=== PATIENT | female | born 1955 | race Caucasian/White ===

== ENCOUNTER 2020-08-15 12:01 | Inpatient (IN) ==
[~2020-08-15 12:01] MED LIST: *HR* Dextrose 50 % in Water (Vial) 50 ML VIAL IVP ONE
[2020-08-15] MEDS ORDERED: *HR* Dextrose 50 % in Water (Vial) 50 ML VIAL IVP ONE (12:13)
[2020-08-15 12:25] LABS: Basophils % 0.2 %; Hematocrit 51.4 % (35.3-44.9); Hemoglobin 14.9 g/dL (11.5-15.4); Immature Granulocytes % 1.7 % (0-4); Lymphocytes # 1.5 K/mcL (0.6-4.6); Lymphocytes % 16.6 %; Mean Corpuscular Hemoglobin 30.4 pg (28.0-33.3); Mean Corpuscular Volume 104.9 fL (83.0-100.0); Mean Platelet Volume 11.1 fL (9.4-12.4); Monocytes # 0.7 K/mcL (0.0-1.3); Monocytes % 8.1 %; Neutrophils # 6.4 K/mcL (1.6-8.9); Platelet Count 146 K/mcL (140-400); Red Cell Distribution Width 12.8 % (11.5-14.5); Segmented Neutrophils % 73.4 %; White Blood Count 8.7 K/mcL (4.3-11.1)
[2020-08-15] MEDS ORDERED: Piperacillin/Tazobactam 3.375 GM in 0.9 % Sodium Chloride Mini Bag 100 ML IVPB ONE (12:25)
[2020-08-15 12:51] LABS: Calcium 9.8 mg/dL (8.6-10.3)
[2020-08-15 12:52] LABS: Troponin I 4.96 ng/mL (< 0.04)
[2020-08-15 12:55] LABS: Prothrombin Time 22.5 Seconds (9.4-12.1)
[2020-08-15] MEDS: Norepinephrine 4 MG/254 ML IV.SOLN IVC SCH ×2 (12:55→19:42)
[2020-08-15] MEDS ORDERED: 0.9 % Sodium Chloride 1,000 ML IV ONE (13:24)
[2020-08-15] MEDS ORDERED: D10% in Water 500 ML IVC SCH (13:45)
[2020-08-15] MEDS: 0.9 % Sodium Chloride 1,000 ML IVC SCH (13:47)
[2020-08-15] MEDS ORDERED: 0.9 % Sodium Chloride 2,000 ML ONE (15:25)
[2020-08-15] MEDS ORDERED: Naloxone 0.4 MG/ML INJ IVP PRN (15:44)
[2020-08-15] MEDS ORDERED: Ringers Solution, Lactated 1,000 ML IVC SCH (15:45)
[2020-08-15 15:49] LABS: Albumin 3.2 g/dL (3.5-5.7); Albumin/Globulin Ratio 1.4 (1.1-2.2); Bilirubin,Direct 0.6 mg/dL (0.0-0.2); Bilirubin,Indirect 0.8 mg/dL (0.0-1.0); Bilirubin,Total 1.4 mg/dL (0.3-1.0); Globulin 2.3 g/dL (2.4-3.5); Total Protein 5.5 g/dL (6.4-8.9)
[2020-08-15] MEDS ORDERED: *HR* Heparin 5,000 UNIT/ML VIAL IVP PRN (15:50)
[2020-08-15] MEDS ORDERED: Perflutren Lipid Microsphere 1.3 ML in 0.9 % Sodium Chloride 8.7 ML IVP PRN (15:52)
[2020-08-15] MEDS ORDERED: *HR* OxyCODONE/APAP 5/325 TABLET PO PRN (15:54)
[2020-08-15] MEDS ORDERED: *HR* Dextrose 50 % in Water (Vial) 50 ML VIAL IVP PRN (15:59)
[2020-08-15] MEDS ORDERED: Dextrose Gel 15 GM/37.5 ML TUBE PO PRN ×2 (15:59)
[2020-08-15] MEDS ORDERED: D5% in Water 1,000 ML IVC PRN (15:59)
[2020-08-15] MEDS ORDERED: Heparin 25,000UNIT/250ML 1/2NS 25,000 UNIT/250 ML IV.SOLN IVC SCH (16:00)
[2020-08-15] MEDS ORDERED: Piperacillin/Tazobactam 3.375 GM in 0.9 % Sodium Chloride Mini Bag 100 ML IVPB SCH (16:00)
[2020-08-15 16:27] LABS: Mean Corpuscular HGB Conc 30.5 g/dL (31.6-35.5); Mean Corpuscular Hemoglobin 30.8 pg (28.0-33.3); Mean Corpuscular Volume 100.8 fL (83.0-100.0); Mean Platelet Volume 11.3 fL (9.4-12.4); Platelet Count 157 K/mcL (140-400); Red Blood Count 3.77 M/mcL (3.82-4.97); Red Cell Distribution Width 12.8 % (11.5-14.5)
[2020-08-15 16:28] LABS: VBG HCO3 14 mEq/L (21-27); VBG PCO2 46 mmHg (41-51); VBG PH 7.09 pH Units (7.32-7.42); VBG PO2 75 mmHg (25-50)
[2020-08-15 16:31] LABS: Heparin anti-factor XA UFH 0.61 IU/mL (0.30-0.70)
[2020-08-15 16:32] LABS: INR 2.9
[2020-08-15] MEDS ORDERED: Tiotropium 10 INH DOSE IH ONE (16:34)
[2020-08-15 16:35] LABS: Hemoglobin 11.6 g/dL (11.5-15.4); White Blood Count 17.9 K/mcL (4.3-11.1)
[2020-08-15] MEDS ORDERED: Budesonide/Formoterol 160/4.5 1 PUFF INH IH ONE (16:35)
[2020-08-15 16:54] LABS: BUN/Creatinine Ratio 11 (6-26); Blood Urea Nitrogen 21 mg/dL (8-23); Calcium 7.4 mg/dL (8.6-10.3); Carbon Dioxide 12 mEq/L (23-29); Chloride 106 mEq/L (98-107); Chol/HDL Ratio 3.7 (0-4.9); Cholesterol 132 mg/dL (< 200); Glucose 136 mg/dL (70-105); HDL Cholesterol 36 mg/dL (40-59); LDL Cholesterol,Calculated 80 mg/dL (< 100); Osmolality,Calculated 297 (280-300); Potassium 4.7 mEq/L (3.5-5.1); Sodium 141 mEq/L (136-145); Triglycerides 78 mg/dL (< 150); eGFR For African Americans 31 (> 60); eGFR For Non-African Americans 26 (> 60)
[2020-08-15 17:09] LABS: Thyroid Stimulating Hormone 2.251 mcIU/mL (0.340-5.600)
[2020-08-15 17:19] LABS: Amorphous Sediment,Urine Few per hpf (None-Few); Bacteria,Urine Few per hpf (None-Few); Bilirubin,Urine Negative (Negative); Blood,Urine Moderate (Negative); Clarity,Urine Ex.Turbid (Clear); Color,Urine Yellow (Yellow); Glucose,Urine (UA) Normal (Normal); Ketones,Urine 20 mg/dL (Negative); Leukocyte Esterase,Urine Negative (Negative); Mucus,Urine Few per lpf (None-Few); Nitrite,Urine Negative (Negative); Protein,Urine >=300 mg/dL (Neg-Trace); RBC,Urine 30-50 per hpf (0-3); Specific Gravity,Urine 1.019 (1.010-1.025); Urobilinogen,Urine Normal (Normal)
[2020-08-15 17:42] LABS: Protein/Creatinine Ratio,Urine 4.78 mg/mg (0.00-0.20); Sodium, Urine 95.3 mEq/L
[2020-08-15] MEDS: D5% in 0.45% NACL 1,000 ML IVC SCH (18:01)
[2020-08-15] MEDS: Calcium Gluconate 1gm/50mL 1 GM/50 ML BAG IVPB SCH ×2 (18:02→18:49)
[2020-08-15] MEDS: Ondansetron 4 MG/2 ML VIAL IVP PRN (18:12)
[2020-08-15] MEDS: Budesonide/Formoterol 160/4.5 1 PUFF INH IH SCH (19:47)
[2020-08-15 20:07] LABS: VBG HCO3 18 mEq/L (21-27); VBG PCO2 41 mmHg (41-51); VBG PH 7.25 pH Units (7.32-7.42); VBG PO2 60 mmHg (25-50)
[2020-08-15 20:29] LABS: Acetaminophen < 10 mcg/mL (10-20)
[2020-08-15 20:33] LABS: Troponin I 6.79 ng/mL (< 0.04)
[2020-08-15] MEDS ORDERED: Famotidine 20 MG TABLET PO SCH (21:00)
[2020-08-15 21:10] LABS: INR 3.3; Prothrombin Time 36.8 Seconds (9.4-12.1)
[2020-08-15 21:13] LABS: Activated Partial Thrombo Time 32.3 Seconds (26.0-36.0)
[2020-08-15] MEDS: Temazepam 15 MG CAPSULE PO SCH (21:48)
[2020-08-15] MEDS: Insulin LISPRO 300 UNITS/3 ML VIAL SUBQ SCH ×2 (21:48→23:36)
[2020-08-15] MEDS: Famotidine 20 MG/2 ML VIAL IVP SCH (22:05)
[2020-08-15 23:34] LABS: Calcium 7.9 mg/dL (8.6-10.3); Potassium 4.1 mEq/L (3.5-5.1)
[2020-08-16] MEDS: Ondansetron 4 MG/2 ML VIAL IVP PRN ×2 (00:45→16:18)
[2020-08-16] MEDS: D5% in 0.45% NACL 1,000 ML IVC SCH ×3 (02:16→19:18)
[2020-08-16 02:46] LABS: Hepatitis B Surface Antigen Nonreactive (Nonreactive)
[2020-08-16 03:14] LABS: Hepatitis C Virus Antibody Nonreactive (Nonreactive)
[2020-08-16 03:15] LABS: Hepatitis B Core IgM Nonreactive (Nonreactive)
[2020-08-16 04:07] LABS: Hemoglobin 10.5 g/dL (11.5-15.4)
[2020-08-16 04:09] LABS: Hematocrit 31.9 % (35.3-44.9); Immature Platelets 6.8 % (1.1-6.1); Mean Corpuscular HGB Conc 32.9 g/dL (31.6-35.5); Mean Corpuscular Hemoglobin 31.1 pg (28.0-33.3); Mean Corpuscular Volume 94.4 fL (83.0-100.0); Mean Platelet Volume 11.1 fL (9.4-12.4); Red Blood Count 3.38 M/mcL (3.82-4.97); Red Cell Distribution Width 12.7 % (11.5-14.5); White Blood Count 15.1 K/mcL (4.3-11.1)
[2020-08-16 04:18] LABS: INR 2.6; Prothrombin Time 29.6 Seconds (9.4-12.1)
[2020-08-16 04:27] LABS: VBG Ionized Calcium 1.08 mmol/L (1.15-1.35)
[2020-08-16 04:49] LABS: Alanine Aminotransferase 3526 Units/L (7-52); Albumin/Globulin Ratio 1.6 (1.1-2.2); Alkaline Phosphatase 65 Units/L (34-104); Aspartate Amino Transferase > 3000 Units/L (13-39); BUN/Creatinine Ratio 14 (6-26); Bilirubin,Direct 0.2 mg/dL (0.0-0.2); Bilirubin,Indirect 0.4 mg/dL (0.0-1.0); Bilirubin,Total 0.6 mg/dL (0.3-1.0); Blood Urea Nitrogen 30 mg/dL (8-23); Calcium 7.7 mg/dL (8.6-10.3); Carbon Dioxide 20 mEq/L (23-29); Chloride 103 mEq/L (98-107); Globulin 1.9 g/dL (2.4-3.5); Glucose 147 mg/dL (70-105); Magnesium 2.3 mg/dL (1.6-2.6); Osmolality,Calculated 283 (280-300); Potassium 3.9 mEq/L (3.5-5.1); Sodium 132 mEq/L (136-145); Total Protein 4.9 g/dL (6.4-8.9); eGFR For African Americans 28 (> 60); eGFR For Non-African Americans 23 (> 60)
[2020-08-16] MEDS: Calcium Gluconate 1gm/50mL 1 GM/50 ML BAG IVPB SCH ×2 (05:21→06:14)
[2020-08-16] MEDS: Famotidine 20 MG/2 ML VIAL IVP SCH (05:21)
[2020-08-16] MEDS: Insulin LISPRO 300 UNITS/3 ML VIAL SUBQ SCH ×2 (05:34→11:00)
[2020-08-16] MEDS: Tiotropium 10 INH DOSE IH SCH (08:10)
[2020-08-16] MEDS: Budesonide/Formoterol 160/4.5 1 PUFF INH IH SCH ×2 (08:11→20:00)
[2020-08-16] MEDS ORDERED: (Ezetimibe [Zetia] 10 MG) PO SCH (09:00)
[2020-08-16] MEDS ORDERED: D5% in 0.45% NACL 1,000 ML IVC PRN (10:12)
[2020-08-16] MEDS: Aspirin Enteric Coated 81 MG Tablet PO SCH (10:59)
[2020-08-16] MEDS: Lactulose Oral Soln 20 GM/30 ML UDC PO SCH (18:14)
[2020-08-16] MEDS: Temazepam 15 MG CAPSULE PO SCH (20:25)
[2020-08-16] MEDS: Famotidine 20 MG TABLET PO SCH (20:59)
[2020-08-16] MEDS ORDERED: Lactulose Oral Soln 20 GM/30 ML UDC PO SCH (21:00)
[2020-08-17] MEDS ORDERED: Lactulose Oral Soln 20 GM/30 ML UDC PO ONE
[2020-08-17] MEDS: D5% in 0.45% NACL 1,000 ML IVC SCH (03:52)
[2020-08-17 04:02] LABS: Hemoglobin 9.6 g/dL (11.5-15.4); Mean Corpuscular Hemoglobin 31.6 pg (28.0-33.3); Mean Platelet Volume 11.4 fL (9.4-12.4); Red Blood Count 3.04 M/mcL (3.82-4.97); Red Cell Distribution Width 12.4 % (11.5-14.5)
[2020-08-17 04:04] LABS: Hematocrit 28.5 % (35.3-44.9); Immature Platelets 5.7 % (1.1-6.1); Mean Corpuscular HGB Conc 33.7 g/dL (31.6-35.5); Mean Corpuscular Volume 93.8 fL (83.0-100.0)
[2020-08-17 04:14] LABS: VBG HCO3 18 mEq/L (21-27); VBG Ionized Calcium 1.06 mmol/L (1.15-1.35); VBG PCO2 37 mmHg (41-51); VBG PO2 64 mmHg (25-50)
[2020-08-17 04:28] LABS: Prothrombin Time 22.7 Seconds (9.4-12.1)
[2020-08-17 04:31] LABS: Activated Partial Thrombo Time 26.1 Seconds (26.0-36.0)
[2020-08-17] MEDS ORDERED: Calcium Gluconate 1gm/50mL 1 GM/50 ML BAG IVPB ONE ×2 (04:35→05:15)
[2020-08-17 04:38] LABS: Alanine Aminotransferase 2766 Units/L (7-52); Albumin 2.8 g/dL (3.5-5.7); Albumin/Globulin Ratio 1.6 (1.1-2.2); Alkaline Phosphatase 64 Units/L (34-104); Aspartate Amino Transferase > 3000 Units/L (13-39); BUN/Creatinine Ratio 13 (6-26); Bilirubin,Direct 0.2 mg/dL (0.0-0.2); Bilirubin,Indirect 0.4 mg/dL (0.0-1.0); Bilirubin,Total 0.6 mg/dL (0.3-1.0); Blood Urea Nitrogen 45 mg/dL (8-23); Calcium 7.4 mg/dL (8.6-10.3); Carbon Dioxide 17 mEq/L (23-29); Chloride 99 mEq/L (98-107); Globulin 1.8 g/dL (2.4-3.5); Glucose 114 mg/dL (70-105); Osmolality,Calculated 274 (280-300); Potassium 3.6 mEq/L (3.5-5.1); Sodium 126 mEq/L (136-145); Total Protein 4.6 g/dL (6.4-8.9); eGFR For African Americans 16 (> 60); eGFR For Non-African Americans 14 (> 60)
[2020-08-17] MEDS: Calcium Gluconate 1gm/50mL 1 GM/50 ML BAG IVPB SCH ×2 (05:48→06:52)
[2020-08-17] MEDS: Tiotropium 10 INH DOSE IH SCH (07:35)
[2020-08-17] MEDS: Budesonide/Formoterol 160/4.5 1 PUFF INH IH SCH ×2 (07:35→20:05)
[2020-08-17] MEDS: Lactulose Oral Soln 20 GM/30 ML UDC PO SCH ×2 (07:58→19:47)
[2020-08-17] MEDS: Famotidine 20 MG TABLET PO SCH ×2 (07:58→19:46)
[2020-08-17] MEDS: Aspirin Enteric Coated 81 MG Tablet PO SCH (07:59)
[2020-08-17] MEDS: Sodium Bicarbonate 150 MEQ in D5% in 0.45% NACL 1,000 ML IVC SCH (11:04)
[2020-08-17 17:32] LABS: Hepatitis A Antibody IgM Nonreactive (Nonreactive)
[2020-08-17] MEDS: Temazepam 15 MG CAPSULE PO SCH (19:55)
[2020-08-18 04:34] LABS: VBG Ionized Calcium 1.01 mmol/L (1.15-1.35)
[2020-08-18 04:42] LABS: Hematocrit 26.2 % (35.3-44.9); Hemoglobin 9.1 g/dL (11.5-15.4); Immature Platelets 5.4 % (1.1-6.1); Mean Corpuscular HGB Conc 34.7 g/dL (31.6-35.5); Mean Corpuscular Hemoglobin 31.4 pg (28.0-33.3); Mean Corpuscular Volume 90.3 fL (83.0-100.0); Mean Platelet Volume 11.1 fL (9.4-12.4); Red Blood Count 2.9 M/mcL (3.82-4.97); Red Cell Distribution Width 12.1 % (11.5-14.5); White Blood Count 8.2 K/mcL (4.3-11.1)
[2020-08-18 05:09] LABS: Rheumatoid Factor 11 IU/mL (Less than 14)
[2020-08-18 05:16] LABS: Complement C3 43 mg/dL (87-200)
[2020-08-18 05:27] LABS: % Iron Saturation 15 % (15-50); Alanine Aminotransferase 1566 Units/L (7-52); Albumin 2.4 g/dL (3.5-5.7); Albumin/Globulin Ratio 1.3 (1.1-2.2); Alkaline Phosphatase 66 Units/L (34-104); Aspartate Amino Transferase 753 Units/L (13-39); BUN/Creatinine Ratio 12 (6-26); Bilirubin,Total 0.8 mg/dL (0.3-1.0); Blood Urea Nitrogen 52 mg/dL (8-23); Calcium 7.3 mg/dL (8.6-10.3); Carbon Dioxide 23 mEq/L (23-29); Chloride 95 mEq/L (98-107); Globulin 1.8 g/dL (2.4-3.5); Glucose 96 mg/dL (70-105); Iron 30 mcg/dL (50-170); Osmolality,Calculated 276 (280-300); Potassium 3.6 mEq/L (3.5-5.1); Sodium 126 mEq/L (136-145); Total Protein 4.2 g/dL (6.4-8.9); Transferrin 147 mg/dL (203-362); eGFR For African Americans 13 (> 60); eGFR For Non-African Americans 10 (> 60)
[2020-08-18 05:33] LABS: Ferritin > 1500 ng/mL (10-120)
[2020-08-18] MEDS: Calcium Gluconate 1gm/50mL 1 GM/50 ML BAG IVPB SCH ×2 (05:34→06:27)
[2020-08-18 05:45] LABS: Folate 6.8 ng/mL (3.0-16.0)
[2020-08-18 05:47] LABS: Vitamin B12 > 1500 pg/mL (250-1100)
[2020-08-18] MEDS: Budesonide/Formoterol 160/4.5 1 PUFF INH IH SCH ×2 (08:10→20:13)
[2020-08-18] MEDS: Tiotropium 10 INH DOSE IH SCH (08:10)
[2020-08-18 09:20] LABS: INR 1.4; Prothrombin Time 16.1 Seconds (9.4-12.1)
[2020-08-18 09:22] LABS: Protein/Creatinine Ratio,Urine 2.55 mg/mg (0.00-0.20); Sodium, Urine 19.4 mEq/L
[2020-08-18] MEDS: Sodium Bicarbonate 150 MEQ in D5% in 0.45% NACL 1,000 ML IVC SCH ×3 (10:00→11:17)
[2020-08-18] MEDS: Lactulose Oral Soln 20 GM/30 ML UDC PO SCH ×2 (10:13→20:16)
[2020-08-18] MEDS: Aspirin Enteric Coated 81 MG Tablet PO SCH (10:13)
[2020-08-18] MEDS: Famotidine 20 MG TABLET PO SCH ×2 (10:15→20:17)
[2020-08-18] MEDS ORDERED: Perflutren Lipid Microsphere 1.3 ML in 0.9 % Sodium Chloride 8.7 ML IVP PRN (10:20)
[2020-08-18] MEDS ORDERED: D5% in Water 1,000 ML IVC PRN (10:20)
[2020-08-18] MEDS ORDERED: D5% in 0.45% NACL 1,000 ML IVC PRN (10:20)
[2020-08-18] MEDS ORDERED: Ondansetron 4 MG/2 ML VIAL IVP PRN (10:20)
[2020-08-18] MEDS ORDERED: *HR* Dextrose 50 % in Water (Vial) 50 ML VIAL IVP PRN (10:20)
[2020-08-18] MEDS ORDERED: Dextrose Gel 15 GM/37.5 ML TUBE PO PRN ×2 (10:20)
[2020-08-18] MEDS ORDERED: Naloxone 0.4 MG/ML INJ IVP PRN (10:20)
[2020-08-18] MEDS ORDERED: *HR* Heparin 5,000 UNIT/ML VIAL IVP PRN ×2 (13:44)
[2020-08-18] MEDS: Heparin 25,000UNIT/250ML 1/2NS 25,000 UNIT/250 ML IV.SOLN IVC SCH (15:07)
[2020-08-18 15:39] LABS: Heparin anti-factor XA UFH 0.1 IU/mL (0.30-0.70)
[2020-08-18 15:40] LABS: INR 1.2; Prothrombin Time 14.2 Seconds (9.4-12.1)
[2020-08-18 18:19] LABS: Activated Partial Thrombo Time 23.9 Seconds (26.0-36.0)
[2020-08-18 18:36] LABS: Hematocrit 26.9 % (35.3-44.9); Hemoglobin 9.4 g/dL (11.5-15.4); Immature Platelets 5.2 % (1.1-6.1); Mean Corpuscular HGB Conc 34.9 g/dL (31.6-35.5); Mean Corpuscular Hemoglobin 31.5 pg (28.0-33.3); Mean Corpuscular Volume 90.3 fL (83.0-100.0); Mean Platelet Volume 11.2 fL (9.4-12.4); Red Blood Count 2.98 M/mcL (3.82-4.97); Red Cell Distribution Width 12.3 % (11.5-14.5)
[2020-08-18] MEDS: Temazepam 15 MG CAPSULE PO SCH (20:17)
[2020-08-19 03:29] LABS: Red Cell Distribution Width 12.3 % (11.5-14.5)
[2020-08-19 03:32] LABS: Hematocrit 25.9 % (35.3-44.9); Immature Platelets 4.3 % (1.1-6.1); Mean Corpuscular HGB Conc 34.7 g/dL (31.6-35.5); Mean Corpuscular Hemoglobin 31.5 pg (28.0-33.3); Mean Corpuscular Volume 90.6 fL (83.0-100.0); Mean Platelet Volume 11.4 fL (9.4-12.4); Red Blood Count 2.86 M/mcL (3.82-4.97); White Blood Count 7.7 K/mcL (4.3-11.1)
[2020-08-19 04:13] LABS: Albumin 2.3 g/dL (3.5-5.7); Albumin/Globulin Ratio 1.3 (1.1-2.2); Bilirubin,Total 1.1 mg/dL (0.3-1.0); Calcium 7.2 mg/dL (8.6-10.3); Globulin 1.8 g/dL (2.4-3.5); Total Protein 4.1 g/dL (6.4-8.9)
[2020-08-19] MEDS: Budesonide/Formoterol 160/4.5 1 PUFF INH IH SCH ×2 (07:43→19:58)
[2020-08-19] MEDS: Aspirin Enteric Coated 81 MG Tablet PO SCH (08:25)
[2020-08-19] MEDS: Famotidine 20 MG TABLET PO SCH (08:25)
[2020-08-19] MEDS: Lactulose Oral Soln 20 GM/30 ML UDC PO SCH ×2 (08:25→19:29)
[2020-08-19] MEDS: Sodium Bicarbonate 150 MEQ in D5% in 0.45% NACL 1,000 ML IVC SCH ×3 (09:34→23:23)
[2020-08-19] MEDS: Tiotropium 10 INH DOSE IH SCH (11:14)
[2020-08-19] MEDS ORDERED: 0.9 % Sodium Chloride 1,000 ML IVC SCH (11:15)
[2020-08-19] MEDS: Metoprolol XL (24 HR) Succ 25 MG TAB.ER.24H PO SCH (12:51)
[2020-08-19] MEDS: Heparin 25,000UNIT/250ML 1/2NS 25,000 UNIT/250 ML IV.SOLN IVC SCH (12:52)
[2020-08-19] MEDS: Temazepam 15 MG CAPSULE PO SCH (19:29)
[2020-08-20 03:28] LABS: Hematocrit 27.9 % (35.3-44.9); Hemoglobin 9.3 g/dL (11.5-15.4); Mean Corpuscular HGB Conc 33.3 g/dL (31.6-35.5); Mean Corpuscular Hemoglobin 30.4 pg (28.0-33.3); Mean Corpuscular Volume 91.2 fL (83.0-100.0); Mean Platelet Volume 11.1 fL (9.4-12.4); Platelet Count 114 K/mcL (140-400); Red Blood Count 3.06 M/mcL (3.82-4.97); Red Cell Distribution Width 12.8 % (11.5-14.5); White Blood Count 8.4 K/mcL (4.3-11.1)
[2020-08-20 03:48] LABS: Magnesium 1.8 mg/dL (1.6-2.6); Potassium 3.3 mEq/L (3.5-5.1)
[2020-08-20] MEDS: Tiotropium 10 INH DOSE IH SCH (07:34)
[2020-08-20] MEDS: Budesonide/Formoterol 160/4.5 1 PUFF INH IH SCH ×2 (07:34→20:03)
[2020-08-20] MEDS: Aspirin Enteric Coated 81 MG Tablet PO SCH (08:56)
[2020-08-20] MEDS: Metoprolol XL (24 HR) Succ 25 MG TAB.ER.24H PO SCH (08:56)
[2020-08-20] MEDS: Lactulose Oral Soln 20 GM/30 ML UDC PO SCH ×2 (08:57→20:14)
[2020-08-20] MEDS: Sodium Bicarbonate 150 MEQ in D5% in 0.45% NACL 1,000 ML IVC SCH ×2 (11:15→22:12)
[2020-08-20] MEDS: Heparin 25,000UNIT/250ML 1/2NS 25,000 UNIT/250 ML IV.SOLN IVC SCH (16:24)
[2020-08-20 17:38] LABS: Adenovirus Not Detected (Not Detect); Bordetella Pertussis Not Detected (Not Detect); Chlamydophila pneumoniae Not Detected (Not Detect); Coronavirus 229E Not Detected (Not Detect); Coronavirus HKU1 Not Detected (Not Detect); Coronavirus NL63 Not Detected (Not Detect); Coronavirus OC43 Not Detected (Not Detect); Human Metapneumovirus Not Detected (Not Detect); Human Rhinovirus/Enterovirus Not Detected (Not Detect); Influenza A Subtype 2009 H1 Not Detected (Not Detect); Influenza B Not Detected (Not Detect); Mycoplasma pneumoniae Not Detected (Not Detect); Parainfluenza Virus 1 Not Detected (Not Detect); Parainfluenza Virus 2 Not Detected (Not Detect); Parainfluenza Virus 3 Not Detected (Not Detect); Parainfluenza Virus 4 Not Detected (Not Detect); Respiratory Syncytial Virus Not Detected (Not Detect); SARS-CoV-2 Not Detected (Not Detect)
[2020-08-20] MEDS: Famotidine 20 MG TABLET PO SCH (20:14)
[2020-08-20] MEDS: Temazepam 15 MG CAPSULE PO SCH (20:15)
[2020-08-20 21:42] LABS: Basophils % 0.1 %; Eosinophils # 0.1 K/mcL (0.0-0.6); Eosinophils % 1.3 %; Hematocrit 27.4 % (35.3-44.9); Hemoglobin 9.3 g/dL (11.5-15.4); Immature Granulocytes % 0.9 % (0-4); Lymphocytes # 1.3 K/mcL (0.6-4.6); Lymphocytes % 16.4 %; Mean Corpuscular HGB Conc 33.9 g/dL (31.6-35.5); Mean Corpuscular Hemoglobin 31.1 pg (28.0-33.3); Mean Corpuscular Volume 91.6 fL (83.0-100.0); Mean Platelet Volume 11.3 fL (9.4-12.4); Monocytes # 1.4 K/mcL (0.0-1.3); Monocytes % 18.5 %; Neutrophils # 4.8 K/mcL (1.6-8.9); Platelet Count 116 K/mcL (140-400); Red Blood Count 2.99 M/mcL (3.82-4.97); Red Cell Distribution Width 13.1 % (11.5-14.5); Segmented Neutrophils % 62.8 %; White Blood Count 7.6 K/mcL (4.3-11.1)
[2020-08-20 21:57] LABS: ABG Base Excess 4 mEq/L (-2 to 3); ABG HCO3 30 mEq/L (21-27); ABG Oxygen Saturation 94 % (95-98); ABG PCO2 46 mmHg (35-45); ABG PH 7.42 pH Units (7.32-7.45); ABG PO2 70 mmHg (85-104); ABG TCO2 31 mEq/L (20-26)
[2020-08-20 22:04] LABS: Platelet Estimate Slight Decrease (Normal)
[2020-08-20 22:05] LABS: Calcium 7.1 mg/dL (8.6-10.3); Potassium 3.1 mEq/L (3.5-5.1)
[2020-08-21] MEDS ORDERED: Calcium Gluconate 1gm/50mL 1 GM/50 ML BAG IVPB ONE (00:08)
[2020-08-21 06:16] LABS: Hemoglobin 9.1 g/dL (11.5-15.4); Mean Corpuscular HGB Conc 33.7 g/dL (31.6-35.5); Mean Corpuscular Hemoglobin 30.8 pg (28.0-33.3); Mean Corpuscular Volume 91.5 fL (83.0-100.0); Mean Platelet Volume 11.2 fL (9.4-12.4); Platelet Count 110 K/mcL (140-400); Red Blood Count 2.95 M/mcL (3.82-4.97); Red Cell Distribution Width 13.3 % (11.5-14.5); White Blood Count 8.5 K/mcL (4.3-11.1)
[2020-08-21 06:37] LABS: Albumin 2.1 g/dL (3.5-5.7); Albumin/Globulin Ratio 1.2 (1.1-2.2); Bilirubin,Direct 0.2 mg/dL (0.0-0.2); Bilirubin,Indirect 0.5 mg/dL (0.0-1.0); Bilirubin,Total 0.7 mg/dL (0.3-1.0); Globulin 1.8 g/dL (2.4-3.5); Total Protein 3.9 g/dL (6.4-8.9)
[2020-08-21 06:38] LABS: Calcium 7.2 mg/dL (8.6-10.3); Magnesium 1.8 mg/dL (1.6-2.6); Potassium 3.4 mEq/L (3.5-5.1)
[2020-08-21 06:51] LABS: ANA IgG by ELISA NONE DETECTED (None Detected)
[2020-08-21] MEDS: Tiotropium 10 INH DOSE IH SCH (08:03)
[2020-08-21] MEDS: Budesonide/Formoterol 160/4.5 1 PUFF INH IH SCH ×2 (08:03→19:57)
[2020-08-21] MEDS: Aspirin Enteric Coated 81 MG Tablet PO SCH (08:34)
[2020-08-21] MEDS: Lactulose Oral Soln 20 GM/30 ML UDC PO SCH ×2 (08:34→21:59)
[2020-08-21 09:24] LABS: Serine Protease-3 Antibody 0 AU/mL (0-19)
[2020-08-21] MEDS ORDERED: 0.9 % Sodium Chloride 250 ML IVC PRN (09:24)
[2020-08-21] MEDS ORDERED: *HR* Heparin 10,000 UNIT/10 ML VIAL IV PRN (09:24)
[2020-08-21 09:25] LABS: GBM IgG Multiplex Bead Assay 0 AU/mL (0-19); Glomerular Basement Memb IgG NEGATIVE (Negative)
[2020-08-21] MEDS ORDERED: 0.9 % Sodium Chloride 1,000 ML PRIME SCH (09:30)
[2020-08-21] MEDS: Metoprolol XL (24 HR) Succ 25 MG TAB.ER.24H PO SCH (10:03)
[2020-08-21] MEDS: Sodium Bicarbonate 150 MEQ in D5% in 0.45% NACL 1,000 ML IVC SCH (10:03)
[2020-08-21 11:53] LABS: Hepatitis B Surface Antibody < 3.10 mIU/mL
[2020-08-21 12:04] LABS: Hepatitis B Surface Antigen Nonreactive (Nonreactive)
[2020-08-21] MEDS: Heparin 25,000UNIT/250ML 1/2NS 25,000 UNIT/250 ML IV.SOLN IVC SCH (13:50)
[2020-08-21] MEDS ORDERED: *HR* Heparin 5,000 UNIT/ML VIAL ONE (14:01)
[2020-08-21] MEDS: Famotidine 20 MG TABLET PO SCH (21:58)
[2020-08-21] MEDS: *HR* OxyCODONE/APAP 5/325 TABLET PO PRN (21:59)
[2020-08-22 03:38] LABS: APTT (LE Anticoag) 37 sec (32-48); Diluted Russell Viper Venom 42 sec (33-44); PT (LE-Anticoag) 18.5 sec (12.0-15.5)
[2020-08-22 05:22] LABS: Basophils % 0.3 %; Eosinophils # 0.1 K/mcL (0.0-0.6); Eosinophils % 1.3 %; Hematocrit 28.2 % (35.3-44.9); Hemoglobin 9.2 g/dL (11.5-15.4); Immature Granulocytes % 0.8 % (0-4); Lymphocytes # 1.5 K/mcL (0.6-4.6); Mean Corpuscular HGB Conc 32.6 g/dL (31.6-35.5); Mean Corpuscular Hemoglobin 30.7 pg (28.0-33.3); Monocytes # 1.3 K/mcL (0.0-1.3); Monocytes % 17.4 %; Neutrophils # 4.7 K/mcL (1.6-8.9); Platelet Count 118 K/mcL (140-400); Segmented Neutrophils % 61.2 %; White Blood Count 7.7 K/mcL (4.3-11.1)
[2020-08-22 05:41] LABS: Calcium 7.6 mg/dL (8.6-10.3); Magnesium 1.8 mg/dL (1.6-2.6); Phosphorous 4.4 mg/dL (2.7-4.5); Potassium 3.7 mEq/L (3.5-5.1)
[2020-08-22] MEDS ORDERED: *HR* Heparin 10,000 UNIT/10 ML VIAL IV PRN (07:27)
[2020-08-22] MEDS ORDERED: 0.9 % Sodium Chloride 250 ML IVC PRN ×2 (07:27→15:27)
[2020-08-22] MEDS: Metoprolol XL (24 HR) Succ 25 MG TAB.ER.24H PO SCH (07:47)
[2020-08-22] MEDS: Lactulose Oral Soln 20 GM/30 ML UDC PO SCH ×2 (07:51→20:55)
[2020-08-22] MEDS: Aspirin Enteric Coated 81 MG Tablet PO SCH (07:51)
[2020-08-22] MEDS: Heparin 25,000UNIT/250ML 1/2NS 25,000 UNIT/250 ML IV.SOLN IVC SCH (07:52)
[2020-08-22] MEDS ORDERED: *HR* FentaNYL (PF) 100 MCG/2 ML VIAL ONE (11:58)
[2020-08-22] MEDS ORDERED: *HR* Midazolam HCl 2 MG/2 ML VIAL ONE (11:58)
[2020-08-22] MEDS ORDERED: 0.9 % Sodium Chloride 2,000 ML ONE (11:58)
[2020-08-22] MEDS ORDERED: Heparin 1,000 UNITS/500 mL 500 ML ONE (11:59)
[2020-08-22] MEDS ORDERED: ISOVUE-370 200 ML INFUS..BTL ONE (11:59)
[2020-08-22] MEDS ORDERED: *HR* Heparin 10,000 UNIT/10 ML VIAL ONE (11:59)
[2020-08-22] MEDS ORDERED: Nitroglycerin 1,000 MCG/10 ML VIAL IV ONE (11:59)
[2020-08-22] MEDS: Budesonide/Formoterol 160/4.5 1 PUFF INH IH SCH ×2 (12:20→22:15)
[2020-08-22] MEDS: Tiotropium 10 INH DOSE IH SCH (12:20)
[2020-08-22] MEDS ORDERED: Perflutren Lipid Microsphere 1.3 ML in 0.9 % Sodium Chloride 8.7 ML IVP PRN (13:25)
[2020-08-22] MEDS: Famotidine 20 MG TABLET PO SCH (20:55)
[2020-08-23] MEDS ORDERED: *HR* Heparin 10,000 UNIT/10 ML VIAL IV PRN (00:01)
[2020-08-23 03:22] LABS: Basophils % 0.2 %; Eosinophils # 0.1 K/mcL (0.0-0.6); Eosinophils % 0.8 %; Hematocrit 26.7 % (35.3-44.9); Hemoglobin 8.8 g/dL (11.5-15.4); Immature Granulocytes % 0.6 % (0-4); Lymphocytes # 1.2 K/mcL (0.6-4.6); Lymphocytes % 11.8 %; Mean Corpuscular Hemoglobin 31.2 pg (28.0-33.3); Mean Corpuscular Volume 94.7 fL (83.0-100.0); Mean Platelet Volume 11.2 fL (9.4-12.4); Monocytes # 1.4 K/mcL (0.0-1.3); Monocytes % 13.2 %; Neutrophils # 7.6 K/mcL (1.6-8.9); Platelet Count 105 K/mcL (140-400); Red Blood Count 2.82 M/mcL (3.82-4.97); Red Cell Distribution Width 14.2 % (11.5-14.5); Segmented Neutrophils % 73.4 %; White Blood Count 10.4 K/mcL (4.3-11.1)
[2020-08-23 03:35] LABS: Calcium 7.8 mg/dL (8.6-10.3); Magnesium 1.7 mg/dL (1.6-2.6); Phosphorous 3.3 mg/dL (2.7-4.5); Potassium 3.5 mEq/L (3.5-5.1)
[2020-08-23] MEDS: *HR* OxyCODONE/APAP 5/325 TABLET PO PRN (06:20)
[2020-08-23] MEDS: Budesonide/Formoterol 160/4.5 1 PUFF INH IH SCH ×2 (07:32→19:44)
[2020-08-23] MEDS: Tiotropium 10 INH DOSE IH SCH (07:32)
[2020-08-23] MEDS: Aspirin Enteric Coated 81 MG Tablet PO SCH (08:25)
[2020-08-23] MEDS: Metoprolol XL (24 HR) Succ 25 MG TAB.ER.24H PO SCH (08:25)
[2020-08-23] MEDS: Lactulose Oral Soln 20 GM/30 ML UDC PO SCH ×2 (08:26→20:54)
[2020-08-23] MEDS: *HR* Heparin 5,000 UNIT/ML VIAL SQ SCH (18:24)
[2020-08-23] MEDS: polyethylene glycoL 3350 17 GM POWD.PACK PO SCH (18:24)
[2020-08-23] MEDS: Famotidine 20 MG TABLET PO SCH (20:54)
[2020-08-24 02:39] LABS: Basophils % 0.2 %; Eosinophils # 0.1 K/mcL (0.0-0.6); Eosinophils % 1.5 %; Hematocrit 26.6 % (35.3-44.9); Hemoglobin 8.7 g/dL (11.5-15.4); Immature Granulocytes % 0.5 % (0-4); Lymphocytes # 1.6 K/mcL (0.6-4.6); Lymphocytes % 16.3 %; Mean Corpuscular HGB Conc 32.7 g/dL (31.6-35.5); Mean Corpuscular Volume 94.7 fL (83.0-100.0); Mean Platelet Volume 10.8 fL (9.4-12.4); Monocytes # 1.2 K/mcL (0.0-1.3); Monocytes % 12.4 %; Neutrophils # 6.6 K/mcL (1.6-8.9); Platelet Count 103 K/mcL (140-400); Red Blood Count 2.81 M/mcL (3.82-4.97); Red Cell Distribution Width 14.3 % (11.5-14.5); Segmented Neutrophils % 69.1 %; White Blood Count 9.5 K/mcL (4.3-11.1)
[2020-08-24 02:57] LABS: Magnesium 1.8 mg/dL (1.6-2.6); Phosphorous 3.7 mg/dL (2.7-4.5); Potassium 3.6 mEq/L (3.5-5.1)
[2020-08-24] MEDS: *HR* Heparin 5,000 UNIT/ML VIAL SQ SCH ×2 (06:17→17:00)
[2020-08-24] MEDS: Aspirin Enteric Coated 81 MG Tablet PO SCH (08:50)
[2020-08-24] MEDS: Lactulose Oral Soln 20 GM/30 ML UDC PO SCH ×2 (08:50→20:29)
[2020-08-24] MEDS: Metoprolol XL (24 HR) Succ 25 MG TAB.ER.24H PO SCH (08:50)
[2020-08-24] MEDS: *HR* OxyCODONE/APAP 5/325 TABLET PO PRN (08:50)
[2020-08-24] MEDS: polyethylene glycoL 3350 17 GM POWD.PACK PO SCH (09:51)
[2020-08-24] MEDS: Budesonide/Formoterol 160/4.5 1 PUFF INH IH SCH ×2 (10:30→23:06)
[2020-08-24] MEDS: Tiotropium 10 INH DOSE IH SCH (10:31)
[2020-08-24] MEDS: Famotidine 20 MG TABLET PO SCH (20:29)
[2020-08-25 00:55] LABS: Basophils % 0.2 %; Eosinophils # 0.1 K/mcL (0.0-0.6); Hematocrit 25.1 % (35.3-44.9); Hemoglobin 8.3 g/dL (11.5-15.4); Immature Granulocytes % 0.5 % (0-4); Lymphocytes # 1.5 K/mcL (0.6-4.6); Lymphocytes % 13.8 %; Mean Corpuscular HGB Conc 33.1 g/dL (31.6-35.5); Mean Corpuscular Hemoglobin 31.1 pg (28.0-33.3); Mean Platelet Volume 10.8 fL (9.4-12.4); Monocytes # 1.2 K/mcL (0.0-1.3); Neutrophils # 7.8 K/mcL (1.6-8.9); Platelet Count 119 K/mcL (140-400); Red Blood Count 2.67 M/mcL (3.82-4.97); Red Cell Distribution Width 14.2 % (11.5-14.5); Segmented Neutrophils % 73.5 %; White Blood Count 10.6 K/mcL (4.3-11.1)
[2020-08-25 01:13] LABS: Calcium 8.1 mg/dL (8.6-10.3); Magnesium 1.8 mg/dL (1.6-2.6); Potassium 3.4 mEq/L (3.5-5.1)
[2020-08-25 01:32] LABS: Alpha 2 Globulin (PEP) 0.53 g/dL (0.48-1.05); Beta Globulin (PEP) 0.49 g/dL (0.48-1.10)
[2020-08-25] MEDS ORDERED: *HR* LORazepam 2 MG/ML VIAL IVP ONE ×2 (03:22→03:30)
[2020-08-25] MEDS ORDERED: *HR* LORazepam 2 MG/ML VIAL ONE (03:23)
[2020-08-25 03:27] LABS: ABG Base Excess -6 mEq/L (-2 to 3); ABG HCO3 23 mEq/L (21-27); ABG Oxygen Saturation 97 % (95-98); ABG PCO2 63 mmHg (35-45); ABG PH 7.16 pH Units (7.32-7.45); ABG PO2 123 mmHg (85-104); ABG TCO2 25 mEq/L (20-26)
[2020-08-25] MEDS ORDERED: Nitroglycerin 0.4 MG TAB.SUBL SL ONE (03:40)
[2020-08-25] MEDS ORDERED: Ipratropium/Albuterol Neb 3 ML IH PRN (04:00)
[2020-08-25] MEDS: *HR* Heparin 5,000 UNIT/ML VIAL SQ SCH ×2 (06:29→17:23)
[2020-08-25] MEDS: Budesonide/Formoterol 160/4.5 1 PUFF INH IH SCH ×2 (07:44→20:15)
[2020-08-25] MEDS: Ipratropium/Albuterol Neb 3 ML IH SCH ×5 (07:44→23:55)
[2020-08-25] MEDS ORDERED: MethylPREDNISolone 40 MG/ML VIAL IVP SCH (08:00)
[2020-08-25 08:18] LABS: ABG Base Excess 4 mEq/L (-2 to 3); ABG HCO3 28 mEq/L (21-27); ABG Oxygen Saturation 97 % (95-98); ABG PCO2 43 mmHg (35-45); ABG PH 7.43 pH Units (7.32-7.45); ABG PO2 87 mmHg (85-104); ABG TCO2 30 mEq/L (20-26)
[2020-08-25 08:20] LABS: IFE Reflexed IFE Done; Immunoglobulin A 147 mg/dL (68-408); Immunoglobulin G 468 mg/dL (768-1632); Immunoglobulin M 32 mg/dL (35-263)
[2020-08-25] MEDS: Metoprolol XL (24 HR) Succ 25 MG TAB.ER.24H PO SCH (09:12)
[2020-08-25] MEDS: Lactulose Oral Soln 20 GM/30 ML UDC PO SCH ×2 (09:12→21:03)
[2020-08-25] MEDS: Aspirin Enteric Coated 81 MG Tablet PO SCH (09:12)
[2020-08-25] MEDS: polyethylene glycoL 3350 17 GM POWD.PACK PO SCH (09:14)
[2020-08-25] MEDS: MethylPREDNISolone 40 MG/ML VIAL IVP SCH (17:23)
[2020-08-25] MEDS: Famotidine 20 MG TABLET PO SCH (21:03)
[2020-08-25] MEDS: Temazepam 15 MG CAPSULE PO PRN (22:39)
[2020-08-26] MEDS: Ipratropium/Albuterol Neb 3 ML IH SCH ×7 (04:08→23:16)
[2020-08-26] MEDS: *HR* Heparin 5,000 UNIT/ML VIAL SQ SCH ×2 (05:25→16:29)
[2020-08-26] MEDS: MethylPREDNISolone 40 MG/ML VIAL IVP SCH ×2 (05:25→16:29)
[2020-08-26 05:50] LABS: Basophils % 0.1 %; Hematocrit 24.1 % (35.3-44.9); Hemoglobin 7.8 g/dL (11.5-15.4); Immature Granulocytes % 0.7 % (0-4); Lymphocytes # 0.5 K/mcL (0.6-4.6); Lymphocytes % 5.1 %; Mean Corpuscular HGB Conc 32.4 g/dL (31.6-35.5); Mean Corpuscular Hemoglobin 30.7 pg (28.0-33.3); Mean Corpuscular Volume 94.9 fL (83.0-100.0); Mean Platelet Volume 11.3 fL (9.4-12.4); Monocytes # 0.4 K/mcL (0.0-1.3); Monocytes % 3.8 %; Neutrophils # 8.9 K/mcL (1.6-8.9); Platelet Count 158 K/mcL (140-400); Red Blood Count 2.54 M/mcL (3.82-4.97); Red Cell Distribution Width 14.2 % (11.5-14.5); Segmented Neutrophils % 90.3 %; White Blood Count 9.9 K/mcL (4.3-11.1)
[2020-08-26 06:10] LABS: Phosphorous 5.1 mg/dL (2.7-4.5); Potassium 4.3 mEq/L (3.5-5.1)
[2020-08-26] MEDS: Aspirin Enteric Coated 81 MG Tablet PO SCH (07:49)
[2020-08-26] MEDS: Lactulose Oral Soln 20 GM/30 ML UDC PO SCH ×2 (07:49→19:06)
[2020-08-26] MEDS: polyethylene glycoL 3350 17 GM POWD.PACK PO SCH (07:50)
[2020-08-26] MEDS: Metoprolol XL (24 HR) Succ 25 MG TAB.ER.24H PO SCH (07:50)
[2020-08-26] MEDS: Budesonide/Formoterol 160/4.5 1 PUFF INH IH SCH ×2 (08:00→19:59)
[2020-08-26] MEDS ORDERED: 0.9 % Sodium Chloride 250 ML IVC PRN (08:12)
[2020-08-26] MEDS ORDERED: *HR* Heparin 10,000 UNIT/10 ML VIAL IV PRN ×2 (08:12)
[2020-08-26] MEDS: *HR* OxyCODONE/APAP 5/325 TABLET PO PRN (16:43)
[2020-08-26] MEDS: Famotidine 20 MG TABLET PO SCH (19:05)
[2020-08-26] MEDS: Temazepam 15 MG CAPSULE PO PRN (23:10)
[2020-08-27] MEDS: Ipratropium/Albuterol Neb 3 ML IH SCH ×6 (04:15→23:49)
[2020-08-27] MEDS: MethylPREDNISolone 40 MG/ML VIAL IVP SCH ×2 (06:48→16:34)
[2020-08-27] MEDS: *HR* Heparin 5,000 UNIT/ML VIAL SQ SCH ×2 (06:48→16:35)
[2020-08-27 07:03] LABS: Basophils % 0.1 %; Hematocrit 24.6 % (35.3-44.9); Hemoglobin 7.9 g/dL (11.5-15.4); Immature Granulocytes % 0.6 % (0-4); Lymphocytes # 0.6 K/mcL (0.6-4.6); Lymphocytes % 3.8 %; Mean Corpuscular HGB Conc 32.1 g/dL (31.6-35.5); Mean Corpuscular Volume 96.5 fL (83.0-100.0); Mean Platelet Volume 11.2 fL (9.4-12.4); Monocytes # 1.3 K/mcL (0.0-1.3); Monocytes % 8.5 %; Neutrophils # 12.8 K/mcL (1.6-8.9); Platelet Count 192 K/mcL (140-400); Red Blood Count 2.55 M/mcL (3.82-4.97); Red Cell Distribution Width 14.4 % (11.5-14.5); White Blood Count 14.7 K/mcL (4.3-11.1)
[2020-08-27 07:20] LABS: Calcium 8.1 mg/dL (8.6-10.3); Magnesium 1.9 mg/dL (1.6-2.6); Phosphorous 3.6 mg/dL (2.7-4.5)
[2020-08-27] MEDS: Budesonide/Formoterol 160/4.5 1 PUFF INH IH SCH ×2 (07:23→19:47)
[2020-08-27] MEDS: polyethylene glycoL 3350 17 GM POWD.PACK PO SCH ×2 (08:35→16:35)
[2020-08-27] MEDS: Metoprolol XL (24 HR) Succ 25 MG TAB.ER.24H PO SCH (08:36)
[2020-08-27] MEDS: Aspirin Enteric Coated 81 MG Tablet PO SCH (08:36)
[2020-08-27] MEDS: Lactulose Oral Soln 20 GM/30 ML UDC PO SCH ×2 (08:37→20:29)
[2020-08-27] MEDS ORDERED: Metoprolol XL (24 HR) Succ 25 MG TAB.ER.24H PO ONE (10:10)
[2020-08-27] MEDS ORDERED: hydrALAZINE 25 MG TABLET PO PRN (12:42)
[2020-08-27] MEDS ORDERED: Lidocaine/EPI 1:100k 1% 50 ML VIAL ONE (13:15)
[2020-08-27] MEDS ORDERED: Heparin 1,000 UNITS/500 mL 500 ML ONE (13:15)
[2020-08-27] MEDS ORDERED: *HR* Heparin 5,000 UNIT/ML VIAL ONE (13:43)
[2020-08-27] MEDS ORDERED: CeFAZolin 2,000 MG/50 ML BAG IVPB ONE (14:05)
[2020-08-27] MEDS: hydrALAZINE 25 MG TABLET PO SCH (16:35)
[2020-08-27] MEDS: Famotidine 20 MG TABLET PO SCH (20:29)
[2020-08-27 21:00] LABS: Basophils % 0.1 %; Hemoglobin 7.7 g/dL (11.5-15.4); Immature Granulocytes % 0.6 % (0-4); Lymphocytes # 0.6 K/mcL (0.6-4.6); Lymphocytes % 3.4 %; Mean Corpuscular HGB Conc 32.1 g/dL (31.6-35.5); Mean Corpuscular Hemoglobin 31.2 pg (28.0-33.3); Mean Corpuscular Volume 97.2 fL (83.0-100.0); Mean Platelet Volume 11.2 fL (9.4-12.4); Monocytes # 0.7 K/mcL (0.0-1.3); Monocytes % 4.2 %; Platelet Count 239 K/mcL (140-400); Red Blood Count 2.47 M/mcL (3.82-4.97); Red Cell Distribution Width 14.6 % (11.5-14.5); Segmented Neutrophils % 91.7 %; White Blood Count 16.3 K/mcL (4.3-11.1)
[2020-08-27 21:05] LABS: INR 1.1; Prothrombin Time 12.5 Seconds (9.4-12.1)
[2020-08-27] MEDS: Temazepam 15 MG CAPSULE PO PRN (21:31)
[2020-08-28] MEDS: hydrALAZINE 25 MG TABLET PO SCH ×3 (00:18→17:08)
[2020-08-28] MEDS: Ipratropium/Albuterol Neb 3 ML IH SCH ×5 (03:35→20:09)
[2020-08-28] MEDS: MethylPREDNISolone 40 MG/ML VIAL IVP SCH (05:19)
[2020-08-28] MEDS: *HR* Heparin 5,000 UNIT/ML VIAL SQ SCH ×2 (05:19→17:08)
[2020-08-28 05:42] LABS: Basophils % 0.1 %; Hemoglobin 6.6 g/dL (11.5-15.4); Immature Granulocytes % 0.7 % (0-4); Lymphocytes # 0.7 K/mcL (0.6-4.6); Lymphocytes % 5.5 %; Mean Corpuscular HGB Conc 31.4 g/dL (31.6-35.5); Mean Corpuscular Hemoglobin 30.4 pg (28.0-33.3); Mean Corpuscular Volume 96.8 fL (83.0-100.0); Mean Platelet Volume 11.6 fL (9.4-12.4); Monocytes # 1.2 K/mcL (0.0-1.3); Monocytes % 9.2 %; Neutrophils # 11.3 K/mcL (1.6-8.9); Platelet Count 199 K/mcL (140-400); Red Blood Count 2.17 M/mcL (3.82-4.97); Red Cell Distribution Width 14.3 % (11.5-14.5); Segmented Neutrophils % 84.5 %; White Blood Count 13.4 K/mcL (4.3-11.1)
[2020-08-28 06:09] LABS: Phosphorous 4.2 mg/dL (2.7-4.5); Potassium 4.5 mEq/L (3.5-5.1)
[2020-08-28 06:23] LABS: Magnesium 1.7 mg/dL (1.6-2.6)
[2020-08-28] MEDS ORDERED: 0.9 % Sodium Chloride 1,000 ML PRIME SCH (07:30)
[2020-08-28] MEDS ORDERED: 0.9 % Sodium Chloride 250 ML IVC PRN (07:30)
[2020-08-28] MEDS ORDERED: *HR* Heparin 10,000 UNIT/10 ML VIAL IV PRN ×2 (07:30)
[2020-08-28] MEDS: Budesonide/Formoterol 160/4.5 1 PUFF INH IH SCH ×2 (07:39→21:54)
[2020-08-28] MEDS: Lactulose Oral Soln 20 GM/30 ML UDC PO SCH ×2 (09:00→20:47)
[2020-08-28] MEDS ORDERED: Albumin 25% 25gram/100mL 25 GM/100 ML IV.SOLN ONE (09:40)
[2020-08-28] MEDS: *HR* OxyCODONE/APAP 5/325 TABLET PO PRN ×2 (09:40→17:09)
[2020-08-28] MEDS ORDERED: Albumin 25% 25gram/100mL 25 GM/100 ML IV.SOLN IVPB PRN (09:46)
[2020-08-28] MEDS ORDERED: 0.9 % Sodium Chloride 250 ML ONE (11:47)
[2020-08-28] MEDS: polyethylene glycoL 3350 17 GM POWD.PACK PO SCH (14:10)
[2020-08-28] MEDS: Isosorbide MONOnitrate (24 HR) 30 MG TAB.ER.24H PO SCH (14:10)
[2020-08-28] MEDS: Aspirin Enteric Coated 81 MG Tablet PO SCH (14:10)
[2020-08-28] MEDS: Metoprolol XL (24 HR) Succ 25 MG TAB.ER.24H PO SCH (14:12)
[2020-08-28 16:14] LABS: Albumin 2.7 g/dL (3.5-5.7); Albumin/Globulin Ratio 1.3 (1.1-2.2); Bilirubin,Direct 0.1 mg/dL (0.0-0.2); Bilirubin,Indirect 0.3 mg/dL (0.0-1.0); Bilirubin,Total 0.4 mg/dL (0.3-1.0); Globulin 2.1 g/dL (2.4-3.5); Total Protein 4.8 g/dL (6.4-8.9)
[2020-08-28 16:23] LABS: Retculocyte # 0.06 M/mcL (0.05-0.10)
[2020-08-28] MEDS: Temazepam 15 MG CAPSULE PO PRN (20:47)
[2020-08-28] MEDS: Famotidine 20 MG TABLET PO SCH (20:47)
[2020-08-29] MEDS: hydrALAZINE 25 MG TABLET PO SCH ×3 (01:34→17:33)
[2020-08-29] MEDS: Ipratropium/Albuterol Neb 3 ML IH SCH ×3 (03:52→07:37)
[2020-08-29] MEDS: *HR* Heparin 5,000 UNIT/ML VIAL SQ SCH ×2 (05:34→17:34)
[2020-08-29 06:50] LABS: Hematocrit 23.4 % (35.3-44.9); Hemoglobin 7.4 g/dL (11.5-15.4); Mean Corpuscular HGB Conc 31.6 g/dL (31.6-35.5); Mean Corpuscular Volume 94.7 fL (83.0-100.0); Mean Platelet Volume 11.2 fL (9.4-12.4); Platelet Count 194 K/mcL (140-400); Red Blood Count 2.47 M/mcL (3.82-4.97); Red Cell Distribution Width 16.2 % (11.5-14.5); White Blood Count 11.2 K/mcL (4.3-11.1)
[2020-08-29 07:16] LABS: Potassium 3.8 mEq/L (3.5-5.1)
[2020-08-29 07:17] LABS: % Iron Saturation 45 % (15-50); Iron 114 mcg/dL (50-170); Transferrin 180 mg/dL (203-362)
[2020-08-29 07:37] LABS: Folate 4.1 ng/mL (3.0-16.0)
[2020-08-29] MEDS: Budesonide/Formoterol 160/4.5 1 PUFF INH IH SCH ×2 (07:37→20:02)
[2020-08-29] MEDS: Aspirin Enteric Coated 81 MG Tablet PO SCH (08:38)
[2020-08-29] MEDS: Isosorbide MONOnitrate (24 HR) 30 MG TAB.ER.24H PO SCH (08:38)
[2020-08-29] MEDS: Metoprolol XL (24 HR) Succ 25 MG TAB.ER.24H PO SCH (08:38)
[2020-08-29] MEDS: polyethylene glycoL 3350 17 GM POWD.PACK PO SCH (08:39)
[2020-08-29] MEDS: Lactulose Oral Soln 20 GM/30 ML UDC PO SCH ×2 (08:39→21:21)
[2020-08-29] MEDS ORDERED: SODIUM CHLORIDE/NAHCO3/KCL/PEG 4,000 ML SOLN.RECON PO ONE ×2 (12:58→18:00)
[2020-08-29] MEDS: *HR* OxyCODONE/APAP 5/325 TABLET PO PRN (14:34)
[2020-08-29] MEDS: Famotidine 20 MG TABLET PO SCH (21:21)
[2020-08-30] MEDS: hydrALAZINE 25 MG TABLET PO SCH ×3 (00:26→16:46)
[2020-08-30 04:37] LABS: Hematocrit 29.6 % (35.3-44.9); Mean Corpuscular HGB Conc 32.4 g/dL (31.6-35.5); Mean Corpuscular Hemoglobin 29.9 pg (28.0-33.3); Mean Corpuscular Volume 92.2 fL (83.0-100.0); Mean Platelet Volume 11.1 fL (9.4-12.4); Platelet Count 186 K/mcL (140-400); Red Blood Count 3.21 M/mcL (3.82-4.97); Red Cell Distribution Width 15.1 % (11.5-14.5); White Blood Count 9.4 K/mcL (4.3-11.1)
[2020-08-30 04:38] LABS: Hemoglobin 9.6 g/dL (11.5-15.4)
[2020-08-30 04:58] LABS: Calcium 7.9 mg/dL (8.6-10.3); Potassium 3.7 mEq/L (3.5-5.1)
[2020-08-30] MEDS: *HR* Heparin 5,000 UNIT/ML VIAL SQ SCH ×2 (05:02→17:41)
[2020-08-30] MEDS: *HR* OxyCODONE/APAP 5/325 TABLET PO PRN (05:34)
[2020-08-30] MEDS ORDERED: 0.9 % Sodium Chloride 250 ML IVC PRN (07:30)
[2020-08-30] MEDS ORDERED: *HR* Heparin 10,000 UNIT/10 ML VIAL IV PRN ×2 (07:30)
[2020-08-30] MEDS ORDERED: 0.9 % Sodium Chloride 1,000 ML PRIME SCH (07:30)
[2020-08-30] MEDS: Budesonide/Formoterol 160/4.5 1 PUFF INH IH SCH (07:49)
[2020-08-30 08:07] LABS: Adenovirus Not Detected (Not Detect); Bordetella Pertussis Not Detected (Not Detect); Chlamydophila pneumoniae Not Detected (Not Detect); Coronavirus 229E Not Detected (Not Detect); Coronavirus HKU1 Not Detected (Not Detect); Coronavirus NL63 Not Detected (Not Detect); Coronavirus OC43 Not Detected (Not Detect); Human Metapneumovirus Not Detected (Not Detect); Human Rhinovirus/Enterovirus Not Detected (Not Detect); Influenza A Subtype 2009 H1 Not Detected (Not Detect); Influenza B Not Detected (Not Detect); Mycoplasma pneumoniae Not Detected (Not Detect); Parainfluenza Virus 1 Not Detected (Not Detect); Parainfluenza Virus 2 Not Detected (Not Detect); Parainfluenza Virus 3 Not Detected (Not Detect); Parainfluenza Virus 4 Not Detected (Not Detect); Respiratory Syncytial Virus Not Detected (Not Detect); SARS-CoV-2 Not Detected (Not Detect)
[2020-08-30] MEDS: Metoprolol XL (24 HR) Succ 25 MG TAB.ER.24H PO SCH (08:15)
[2020-08-30] MEDS: Aspirin Enteric Coated 81 MG Tablet PO SCH (08:15)
[2020-08-30] MEDS: Isosorbide MONOnitrate (24 HR) 30 MG TAB.ER.24H PO SCH (08:15)
[2020-08-30] MEDS: Lactulose Oral Soln 20 GM/30 ML UDC PO SCH (08:19)
[2020-08-30] MEDS ORDERED: EPHEDrine 50 MG/ML VIAL ONE (13:06)
[2020-08-30 16:39] VITALS: BP 125/58
[2020-08-30] MEDS ORDERED: *HR* Propofol 500 MG/50 ML BOTTLE IVC ONE (18:36)
[2020-08-30] MEDS ORDERED: Lidocaine -MPF 2% 5 ML VIAL INFILT ONE (18:36)
[2020-08-30] MEDS ORDERED: *HR* Succinylcholine 200 MG/10 ML VIAL IVP ONE (18:36)
== END 2020-08-30 18:37 | disposition home health service (06) | DRG 190 ==
LOC: EMEROOARM 12:01 → SUATTDRO 15:07 → ICNU 15:07 → 2ANU 08-18 18:37
PROVIDERS: ADMIT Internal Medicine; ATTEND Internal Medicine
PROC: IRPERMA (2020-08-27 12:00)
PROC: ENDOEBX (2020-08-30 09:20)